=== PATIENT | female | born 1970 | race Caucasian/White ===

== ENCOUNTER 2022-06-22 18:01 | Inpatient (IN) | payer BC ==
[2022-06-22 18:32] LABS: #Eosinphils 0.2 thou/uL (0.0-0.7); #Lymphocytes 2.9 thou/uL (1.20-3.40); #Monocytes 0.6 thou/uL (0.11-0.59); %Basophils 0.5 % (0.0-1.0); %Eosinophils 2.2 % (0.0-10.0); %Lymphocytes 26.8 % (21.0-51.0); %Monocytes 5.4 % (0.0-10.0); %Neutrophils 65.2 % (42.0-75.0); Hemoglobin 11.4 g/dL (12.0-16.0); Mean Corpuscular HGB CONC 31.5 g/dL (32.0-36.0); Mean Corpuscular Hemoglobin 24.6 pg (27.0-31.0); Mean Corpuscular Volume 78.1 fl (78.0-98.0); Platelet Count 397 10x3/uL (130-400); RBC Distribution Width 14.9 % (11.5-14.5); Red Blood Cell (RBC) Count 4.61 mill/uL (4.20-5.40); White Blood Cell (WBC) Count 10.7 10x3/uL (4.8-10.8)
[2022-06-22 18:50] LABS: ALT (SGPT) 16 U/L (8-55); AST (SGOT) 16 U/L (5-34); Albumin 4.1 g/dL (3.5-5.0); Alkaline Phosphatase 131 U/L (40-110); Anion Gap 13 mmol/L (10-20); BUN (Urea Nitrogen) 14 mg/dL (9.8-20.1); Bilirubin, Total 0.2 mg/dL (0.2-1.2); Calc. Creatinine Clearance 0 mL/min (70-130); Calcium 9.4 mg/dL (7.8-10.44); Carbon Dioxide 25 mmol/L (22-29); Chloride 103 mmol/L (98-107); Estimated GFR 82; Globulin 3.6 g/dL (2.4-3.5); Glucose 168 mg/dL (70-105); Potassium 3.7 mmol/L (3.5-5.1); Protein, Total 7.7 g/dL (6.0-8.3); Sodium 137 mmol/L (136-145)
[2022-06-22] MEDS ORDERED: Aspirin Chewable 81 MG TAB ONE (19:31)
[2022-06-22] MEDS ORDERED: Dextrose 50% Abboject 50 ML SYRINGE SLOW IVP PRN (20:05)
[2022-06-22] MEDS ORDERED: Dextrose 5% in Water 1,000 ML IV PRN (20:05)
[2022-06-22] MEDS ORDERED: HumaLOG 300 UNITS/3 ML VIAL SC PRN ×2 (20:09)
[2022-06-22 20:48] LABS: Cardiac Risk 4.3 (Less than 4.5)
[2022-06-22 20:51] LABS: Hemoglobin A1c 5.9 % (4.0-6.0)
[2022-06-22] MEDS ORDERED: Atorvastatin Calcium 40 MG TAB PO SCH (21:00)
[2022-06-22 21:09] VITALS: BMI 16.9
[2022-06-22] MEDS: Atorvastatin Calcium 40 MG TAB PO SCH (21:16)
[2022-06-22] MEDS: Lactated Ringer's 1,000 ML IV SCH (21:36)
[2022-06-22 23:53] LABS: SARS-CoV-2 NAA Rapid Test Not Detected (NotDetected)
[2022-06-23] MEDS: Lactated Ringer's 1,000 ML IV SCH (07:07)
[2022-06-23] MEDS ORDERED: Aspirin Chewable 81 MG TAB ONE (08:18)
[2022-06-23] MEDS: Aspirin 81 mg Enteric Coated Tablet PO SCH (08:30)
[2022-06-23 08:56] LABS: #Eosinphils 0.2 thou/uL (0.0-0.7); #Lymphocytes 1.7 thou/uL (1.20-3.40); #Monocytes 0.6 thou/uL (0.11-0.59); %Basophils 0.6 % (0.0-1.0); %Eosinophils 2.1 % (0.0-10.0); %Lymphocytes 19.7 % (21.0-51.0); %Monocytes 7.2 % (0.0-10.0); %Neutrophils 70.4 % (42.0-75.0); Hemoglobin 11.1 g/dL (12.0-16.0); Mean Corpuscular HGB CONC 31.4 g/dL (32.0-36.0); Mean Corpuscular Hemoglobin 24.5 pg (27.0-31.0); Mean Corpuscular Volume 77.9 fl (78.0-98.0); Mean Platelet Volume 6.9 fL (7.4-10.4); Platelet Count 402 10x3/uL (130-400); RBC Distribution Width 14.8 % (11.5-14.5); Red Blood Cell (RBC) Count 4.54 mill/uL (4.20-5.40); White Blood Cell (WBC) Count 8.5 10x3/uL (4.8-10.8)
[2022-06-23] MEDS ORDERED: Atorvastatin Calcium 40 MG TAB PO SCH (09:00)
[2022-06-23] MEDS ORDERED: Non-Formulary Item 1 EACH (Apremilast [Otezla] 30 MG Tablet) PO SCH (09:00)
[2022-06-23] MEDS: Venlafaxine HCl XR 75 MG CAP PO SCH (09:12)
[2022-06-23] MEDS: metFORMIN XR 500 MG TAB PO SCH (09:12)
[2022-06-23 09:19] LABS: Anion Gap 11 mmol/L (10-20); BUN (Urea Nitrogen) 16 mg/dL (9.8-20.1); Calc. Creatinine Clearance 142 mL/min (70-130); Calcium 9.6 mg/dL (7.8-10.44); Carbon Dioxide 26 mmol/L (22-29); Chloride 103 mmol/L (98-107); Estimated GFR 101; Glucose 113 mg/dL (70-105); Potassium 4.2 mmol/L (3.5-5.1); Sodium 136 mmol/L (136-145)
[2022-06-23] MEDS: Atorvastatin Calcium 40 MG TAB PO SCH (20:51)
[2022-06-24 09:04] LABS: #Eosinphils 0.2 thou/uL (0.0-0.7); #Lymphocytes 1.9 thou/uL (1.20-3.40); #Monocytes 0.6 thou/uL (0.11-0.59); #Neutrophils 5.6 thou/uL (1.40-6.50); %Basophils 0.5 % (0.0-1.0); %Eosinophils 2.5 % (0.0-10.0); %Lymphocytes 22.8 % (21.0-51.0); %Monocytes 7.1 % (0.0-10.0); %Neutrophils 67.1 % (42.0-75.0); Hemoglobin 11.2 g/dL (12.0-16.0); Mean Corpuscular HGB CONC 31.1 g/dL (32.0-36.0); Mean Corpuscular Hemoglobin 24.5 pg (27.0-31.0); Mean Corpuscular Volume 78.8 fl (78.0-98.0); Mean Platelet Volume 6.7 fL (7.4-10.4); Platelet Count 394 10x3/uL (130-400); RBC Distribution Width 14.6 % (11.5-14.5); Red Blood Cell (RBC) Count 4.57 mill/uL (4.20-5.40); White Blood Cell (WBC) Count 8.4 10x3/uL (4.8-10.8)
[2022-06-24] MEDS: Aspirin 81 mg Enteric Coated Tablet PO SCH (09:25)
[2022-06-24] MEDS: Venlafaxine HCl XR 75 MG CAP PO SCH (09:27)
[2022-06-24] MEDS: metFORMIN XR 500 MG TAB PO SCH (09:28)
[2022-06-24 10:08] LABS: Prothrombin Time 13.5 sec (12.0-14.7)
[2022-06-24 10:09] LABS: PTT 36.8 sec (22.9-36.1)
[2022-06-24 10:11] LABS: D-Dimer Test 0.65 *mcg/mL (0.27-0.43)
[2022-06-24 13:53] LABS: Cardiolipin IgA Ab 2.8 APL-U/mL (<14 Negative); Cardiolipin IgG Ab 0.6 GPL-U/mL (<10 Negative); Cardiolipin IgM Ab 3.9 MPL-U/mL (<10 Negative); EliA APS New Method **** NEW METHOD ****
[2022-06-24 15:42] VITALS: BP 131/96; TEMP 97.4
[2022-06-25] MEDS ORDERED: FLU VACC QS2022-23(6MOS UP)/PF 60 MCG/0.5 ML SYRINGE IM ONE (09:00)
== END 2022-06-24 16:55 | disposition home or self-care (01) | DRG 65 ==
LOC: ERS 18:01 → ERHOLD 19:45 → NEURO 06-23 12:28 → OBSVTOIN 06-23 15:29
PROVIDERS: ADMIT Family Medicine; ATTEND Student in an Organized Health Care Education/Training Program
DX: I63.9 Cerebral infarction, unspecified (principal); G93.49 Other encephalopathy; Z20.822 Contact with and (suspected) exposure to COVID-19; R29.707 NIHSS score 7; G47.33 Obstructive sleep apnea (adult) (pediatric); F17.210 Nicotine dependence, cigarettes, uncomplicated; F32.A Depression, unspecified; K21.9 Gastro-esophageal reflux disease without esophagitis; L40.9 Psoriasis, unspecified; R47.81 Slurred speech; R91.8 Other nonspecific abnormal finding of lung field; R79.89 Other specified abnormal findings of blood chemistry; D64.9 Anemia, unspecified; G83.21 Monoplegia of upper limb affecting right dominant side; I08.1 Rheumatic disorders of both mitral and tricuspid valves; Z79.899 Other long term (current) drug therapy; Z79.84 Long term (current) use of oral hypoglycemic drugs; Z90.89 Acquired absence of other organs; Z82.3 Family history of stroke; Z80.9 Family history of malignant neoplasm, unspecified
CPT/HCPCS: 36415; 36416; 70450; 70496; 70498; 70551; 80048; 80053; 80061; 83036; 83090; 84443; 84484; 85025; 85240; 85300; 85303; 85305; 85307; 85379; 85598; 85610; 85730; 86147; 93005; 93306; 95712; 95819; 95957; 96372; 96374; G0378; J0780; J1650; J7120; U0002